=== PATIENT | male | born 1965 | race Caucasian/White ===

== ENCOUNTER 2017-03-03 13:02 | Emergency (ER) | payer OTHER ==
[2017-03-03 13:23] VITALS: TEMP 97.3
[2017-03-03] MEDS ORDERED: Fluorescein 1 mg Ophthalmic Strip ONE ×2 (14:43→15:01)
[2017-03-03] MEDS ORDERED: Tetracaine 0.5% Ophth (OR ONLY) ONE (14:43)
--- NOTE | 2017-03-03 15:05 | C.PDOC ---
History Of Present Illness 51 y/o male presents to the ER complaining of a foreign body sensation on his left eye which has been present since yesterday.Patient reports that he was using a die grinder on metal without protective eyewear. Patient does not have any other medical complaints. Time Seen by Provider: 03/03/17 14:39 Chief Complaint (Nursing): Foreign Body History Per: Patient History/Exam Limitations: no limitations Onset/Duration Of Symptoms: Days Current Symptoms Are (Timing): Still Present Severity: Moderate Past Medical History Reviewed: Historical Data, Nursing Documentation, Vital Signs Vital Signs: Last Vital Signs Temp 97.3 F L 03/03/17 13:21 Pulse 63 03/03/17 15:18 Resp 19 03/03/17 15:18 BP 156/91 H 03/03/17 15:18 Pulse Ox 99 03/03/17 18:42 - Medical History PMH: No Chronic Diseases Surgical History: No Surg Hx Family History: States: No Known Family Hx - Social History Hx Alcohol Use: No Hx Substance Use: No - Immunization History Hx Tetanus Toxoid Vaccination: No Hx Influenza Vaccination: No Hx Pneumococcal Vaccination: No Review Of Systems Except As Marked, All Systems Reviewed And Found Negative. Neurological: Positive for: Other (foreign body sensation). Negative for: Weakness, Numbness Physical Exam - Physical Exam Appears: Non-toxic, No Acute Distress Skin: Normal Color, Warm Head: Atraumatic, Normacephalic Eye(s): bilateral: Normal Inspection, left: Other (eye viewed using fluorescein stain, tiny metal splinter noted in center of cornea) Nose: Normal Oral Mucosa: Moist Neck: Supple Chest: Symmetrical Cardiovascular: Rhythm Regular Respiratory: Normal Breath Sounds, No Accessory Muscle Use Extremity: Normal ROM Neurological/Psych: Oriented x3, Normal Speech, Normal Cognition, Normal Motor, Normal Sensation ED Course And Treatment O2 Sat by Pulse Oximetry: 99 (RA) Pulse Ox Interpretation: Normal Progress Note: L eye tetracaine x 3 drops for excellent anesthesia. fluoresceine stain and FB noted mid-cornea, tiny metal shaving. gently brushed away with tip of a 19ga needle. re-stained afterwards, FB removed, small corneal abrasion remains. Medical Decision Making Medical Decision Making: tiny metal shaving from a die grinder yesterday, now fb removed from L cornea. Disposition Doctor Will See Patient In The: Office Counseled Patient/Family Regarding: Studies Performed, Diagnosis - Disposition Referrals: [facility] [Outside] Roger Villarreal MD [Staff Provider] - Disposition: HOME/ ROUTINE Disposition Time: 15:04 Condition: GOOD Additional Instructions: motrin 400-600 mg every 6 hours for mild eye pain as needed Follow-up with Dr. Villarreal- Opthalmology- as needed. Instructions: Eye Foreign Body (ED) Forms: [facility] ([facility]) ([place]) - Clinical Impression Clinical Impression: Corneal foreign body - Scribe Statement The provider has reviewed the documentation as recorded by the Scribe Delaney Davis Provider Attestation: All medical record entries made by the Scribe were at my direction and personally dictated by me. I have reviewed the chart and agree that the record accurately reflects my personal performance of the history, physical exam, medical decision making, and the department course for this patient. I have also personally directed, reviewed, and agree with the discharge instructions and disposition.
[2017-03-03 15:19] VITALS: BP 156/91; PULSE 63; RESP 19
[2017-03-03 18:24] VITALS: O2SAT 99
== END 2017-03-03 15:33 | disposition home or self-care (01) ==
LOC: C.ER 13:02
DX: T15.02XA Foreign body in cornea, left eye, initial encounter (principal); X58.XXXA Exposure to other specified factors, initial encounter